=== PATIENT | male | born 1975 | race Caucasian/White ===

== ENCOUNTER 2024-02-06 11:17 | Emergency (ER) | payer OTHER ==
[~2024-02-06] VITALS: Ht 177.8 cm; Wt 84.8 kg
[2024-02-06 11:20] VITALS: BP_SYST 127; PULSE 72; RESP 18; TEMP 98.3; O2SAT 98
[2024-02-06 11:29] VITALS: BP_SYST 127; PULSE 72; RESP 18; TEMP 98.3; O2SAT 98
== END 2024-02-06 11:31 ==
LOC: SED 11:17
DX: R22.2 Localized swelling, mass and lump, trunk (principal); R21 Rash and other nonspecific skin eruption
CPT/HCPCS: 99283